=== PATIENT | male | born 2000 | race Caucasian/White ===

== ENCOUNTER 2021-06-28 16:25 | Inpatient (IN) | payer MEDICAID ==
[~2021-06-28] VITALS: Ht 188 cm; Wt 81.0 kg
[2021-06-28] MEDS ORDERED: NO HOME MEDS (23:50)
[2021-06-29] MEDS ORDERED: LIDOcaine 1% W/epiNEPHrine 1:200,000 10ml vial IJ ONE
[2021-06-29] MEDS ORDERED: LIDOcaine 1% W/epiNEPHrine 1:100,000 20ml vial IJ ONE (00:05)
[2021-06-29] MEDS ORDERED: morphine 2 MG/ML inj. syringe IV PRN ×2 (00:35→02:10)
[2021-06-29] MEDS: normal saline 1000ml 1,000 ML IV SCH ×3 (00:35→15:37)
[2021-06-29] MEDS ORDERED: ondansetron 4mg rapidly disintigrating tab PO PRN (00:35)
[2021-06-29] MEDS ORDERED: diphenhydrAMINE 25mg capsule PO PRN (00:35)
[2021-06-29] MEDS ORDERED: mag hydrox/Alum hydrox/simeth 30ml oral suspension PO PRN (00:35)
[2021-06-29] MEDS ORDERED: HYDROcodone/acetaminophen 10/325mg tab PO PRN (00:35)
[2021-06-29] MEDS ORDERED: acetaminophen 325mg tablet PO PRN ×2 (00:35)
[2021-06-29] MEDS ORDERED: HYDROmorphone inj. 0.5 MG/0.5 ML DISP.SYRIN IV PRN (00:35)
[2021-06-29] MEDS ORDERED: magnesium hydroxide 30ml (MOM) UD suspension PO PRN (00:35)
[2021-06-29] MEDS ORDERED: bisacodyl 10mg suppository rectal RC PRN (00:35)
[2021-06-29] MEDS ORDERED: diphenhydrAMINE 50 mg/ml inj IV PRN (00:35)
[2021-06-29] MEDS ORDERED: acetaminophen 650mg rectal suppository RC PRN (00:35)
--- NOTE | 2021-06-29 00:53 | NUR ---
MOTHER VIVIENNE [phone]
[2021-06-29] MEDS: ondansetron/PF 4mg/2ml inj IV PRN ×2 (03:04→11:27)
[2021-06-29] MEDS: morphine 2 MG/ML inj. syringe IV PRN ×2 (03:04→11:27)
[2021-06-29] MEDS: HYDROcodone/acetaminophen 5mg/325mg tablet PO PRN ×3 (05:22→19:57)
[2021-06-29 05:28] LABS: BASOPHILS # (AUTO) 0.1 X10'3 (0-0.2); BASOPHILS % (AUTO) 0.8 % (0-1); EOSINOPHILS % (AUTO) 0.7 % (0-6); HEMATOCRIT 43.9 % (42.0-52.0); HEMOGLOBIN 14.9 g/dl (14.0-17.9); LYMPHOCYTES # (AUTO) 1.3 X10'3 (1.1-4.8); LYMPHOCYTES % (AUTO) 20.1 % (21-51); MEAN CORPUSCULAR HEMOGLOBIN 30.4 PG (27.0-31.0); MEAN CORPUSCULAR VOLUME 89.3 FL (78-98); MEAN PLATELET VOLUME 8.2 FL (7.4-10.4); MONOCYTES # (AUTO) 0.4 X10'3 (0-0.9); MONOCYTES % (AUTO) 6.4 % (2-12); NEUTROPHILS # (AUTO) 4.5 X10'3 (1.8-7.7); PLATELET COUNT 228 X10'3 (140-440); RED BLOOD COUNT 4.92 X10'6 (4.70-6.10); RED CELL DISTRIBUTION WIDTH 13.7 % (11.5-14.5); WHITE BLOOD COUNT 6.3 X10'3 (4.5-11.0)
[2021-06-29 05:39] LABS: APTT 24 SECONDS (22-32)
[2021-06-29 05:40] LABS: D-DIMER < 0.19 MG/L FEU (0-0.50)
[2021-06-29 05:43] LABS: ALANINE AMINOTRANSFERASE 38 U/L (12-78); ALBUMIN 4.3 G/DL (3.4-5.0); ALBUMIN/GLOBULIN RATIO 1.3 (1.1-1.5); ALKALINE PHOSPHATASE 69 IU/L (46-116); ANION GAP 11 (8-16); ASPARTATE AMINO TRANSFERASE 26 U/L (10-37); BILIRUBIN,TOTAL 0.8 MG/DL (0.1-1.0); BLOOD UREA NITROGEN 12 MG/DL (7-18); BUN/CREATININE RATIO 10.7 (5.4-32.0); CALCIUM 9.1 MG/DL (8.5-10.1); CHLORIDE 105 MMOL/L (99-107); CREATININE 1.12 MG/DL (0.60-1.10); GLUCOSE 73 MG/DL (70-104); POTASSIUM 4.1 MMOL/L (3.5-5.1); SODIUM 141 MMOL/L (135-145); TOTAL CARBON DIOXIDE 25.4 MMOL/L (24-32); TOTAL PROTEIN 7.7 G/DL (6.4-8.2); eGFR 83 ML/MIN
[2021-06-29 05:51] LABS: HEMOGLOBIN A1C 4.9 % (4.5-6.2)
[2021-06-29 05:56] LABS: CREATINE KINASE 86 U/L (39-308); LIPASE 77 U/L (73-393); MAGNESIUM 1.8 MG/DL (1.5-2.4); PHOSPHORUS 3.7 MG/DL (2.3-4.5)
[2021-06-29] MEDS: docusate sod 100mg capsule PO SCH ×2 (08:00→19:57)
[2021-06-29] MEDS: pantoprazole 40MG/NS 100ML BAG 100 ML IV SCH (08:43)
[2021-06-29 15:40] VITALS: BP 135/78
[2021-06-29 18:00] VITALS: BP 135/80
--- NOTE | 2021-06-29 18:22 | NUR ---
Problems reprioritized. Patient report given to Sheela SANCHEZ, questions answered & plan of care reviewed with Sheela SANCHEZ.
--- NOTE | 2021-06-29 19:00 | NUR ---
mr bradford has been assessed as indicated.He has been noted to be both pleasant and cooperative. he does c/o discomfort at the Thoravent sight. He is provided PO pain medication. He uses the urinal independently. He has SOB. no other noted s/s of distress or discomfort
[2021-06-29] MEDS ORDERED: temazepam 15mg capsule PO PRN (21:00)
[2021-06-29 22:00] VITALS: BP 135/76
[2021-06-30 02:00] VITALS: BP 136/87
[2021-06-30] MEDS: HYDROcodone/acetaminophen 5mg/325mg tablet PO PRN ×4 (03:08→19:51)
[2021-06-30] MEDS: normal saline 1000ml 1,000 ML IV SCH ×2 (03:13→14:27)
[2021-06-30 06:00] VITALS: BP 130/70
--- NOTE | 2021-06-30 06:39 | NUR ---
Problems reprioritized. Patient report given, questions answered & plan of care reviewed with JEREMY SANCHEZ.
[2021-06-30 07:26] LABS: BASOPHILS % (AUTO) 0.8 % (0-1); EOSINOPHILS # (AUTO) 0.1 X10'3 (0-0.9); EOSINOPHILS % (AUTO) 2.4 % (0-6); HEMATOCRIT 41.7 % (42.0-52.0); HEMOGLOBIN 14.1 g/dl (14.0-17.9); LYMPHOCYTES # (AUTO) 1.7 X10'3 (1.1-4.8); LYMPHOCYTES % (AUTO) 33.3 % (21-51); MEAN CORPUSCULAR HEMOGLOBIN 30.2 PG (27.0-31.0); MEAN CORPUSCULAR HGB CONC 33.8 g/dL (33.0-36.5); MEAN CORPUSCULAR VOLUME 89.2 FL (78-98); MEAN PLATELET VOLUME 8.5 FL (7.4-10.4); MONOCYTES # (AUTO) 0.5 X10'3 (0-0.9); MONOCYTES % (AUTO) 9.7 % (2-12); NEUTROPHILS # (AUTO) 2.7 X10'3 (1.8-7.7); NEUTROPHILS % (AUTO) 53.8 % (42-75); PLATELET COUNT 202 X10'3 (140-440); RED BLOOD COUNT 4.68 X10'6 (4.70-6.10); RED CELL DISTRIBUTION WIDTH 13.1 % (11.5-14.5)
[2021-06-30 07:38] LABS: ALANINE AMINOTRANSFERASE 30 U/L (12-78); ALBUMIN 3.7 G/DL (3.4-5.0); ALBUMIN/GLOBULIN RATIO 1.3 (1.1-1.5); ALKALINE PHOSPHATASE 58 IU/L (46-116); ANION GAP 10 (8-16); ASPARTATE AMINO TRANSFERASE 19 U/L (10-37); BILIRUBIN,TOTAL 0.7 MG/DL (0.1-1.0); BLOOD UREA NITROGEN 10 MG/DL (7-18); BUN/CREATININE RATIO 10.3 (5.4-32.0); CALCIUM 8.6 MG/DL (8.5-10.1); CHLORIDE 103 MMOL/L (99-107); CHOL/HDL RATIO 2.9 (0.00-4.99); CHOLESTEROL 127 MG/DL (0-200); CREATININE 0.97 MG/DL (0.60-1.10); GLUCOSE 81 MG/DL (70-104); HDL CHOLESTEROL 44 MG/DL (35-60); LDL CHOLESTEROL 71 MG/DL (50-100); POTASSIUM 3.6 MMOL/L (3.5-5.1); SODIUM 140 MMOL/L (135-145); TOTAL PROTEIN 6.6 G/DL (6.4-8.2); TRIGLYCERIDES 44 MG/DL (20-135); eGFR > 90 ML/MIN
[2021-06-30] MEDS: pantoprazole 40MG/NS 100ML BAG 100 ML IV SCH (08:16)
[2021-06-30] MEDS: docusate sod 100mg capsule PO SCH ×2 (08:16→19:52)
[2021-06-30 11:00] VITALS: BP 129/79
--- NOTE | 2021-06-30 14:27 | NUR ---
IV Pt. requested to be removed from IV pole to move around and ambulate; Dr. Ferguson made aware and notified. [facility]
[2021-06-30 15:00] VITALS: BP 131/76
[2021-06-30 18:00] VITALS: BP 129/63
--- NOTE | 2021-06-30 18:15 | NUR ---
Problems reprioritized. Patient report given to Sheela SANCHEZ, questions answered & plan of care reviewed with Sheela SANCHEZ.
[2021-07-01] MEDS: normal saline 1000ml 1,000 ML IV SCH (02:35)
[2021-07-01] MEDS: HYDROcodone/acetaminophen 5mg/325mg tablet PO PRN (05:21)
--- NOTE | 2021-07-01 05:30 | NUR ---
Mr. bradford has been assessed as indicted. He has been noted to be both pleasant and cooperative. He has no s/s of distress or discomfort. He is compliant with the plan to have the Thoravent removed in Angio today. He has been successfully treated for pian 2x this shift. He is presently resting quietly and will continue to be monitored
[2021-07-01 06:00] VITALS: BP_SYST 126; BP_SYST 90; BP_DIAS 30; BP_DIAS 75
--- NOTE | 2021-07-01 06:00 | NUR ---
Patient in room PCU 3020. I have received report from DANIEL Coker and had the opportunity to ask questions and assume patient care.
[2021-07-01 06:50] LABS: BASOPHILS # (AUTO) 0.1 X10'3 (0-0.2); EOSINOPHILS # (AUTO) 0.2 X10'3 (0-0.9); EOSINOPHILS % (AUTO) 3.4 % (0-6); HEMATOCRIT 44.7 % (42.0-52.0); HEMOGLOBIN 15.4 g/dl (14.0-17.9); LYMPHOCYTES # (AUTO) 2.3 X10'3 (1.1-4.8); LYMPHOCYTES % (AUTO) 40.2 % (21-51); MEAN CORPUSCULAR HEMOGLOBIN 30.6 PG (27.0-31.0); MEAN CORPUSCULAR HGB CONC 34.5 g/dL (33.0-36.5); MEAN CORPUSCULAR VOLUME 88.6 FL (78-98); MEAN PLATELET VOLUME 8.4 FL (7.4-10.4); MONOCYTES # (AUTO) 0.6 X10'3 (0-0.9); MONOCYTES % (AUTO) 9.8 % (2-12); NEUTROPHILS # (AUTO) 2.6 X10'3 (1.8-7.7); NEUTROPHILS % (AUTO) 45.6 % (42-75); PLATELET COUNT 238 X10'3 (140-440); RED BLOOD COUNT 5.04 X10'6 (4.70-6.10); RED CELL DISTRIBUTION WIDTH 13.2 % (11.5-14.5); WHITE BLOOD COUNT 5.6 X10'3 (4.5-11.0)
--- NOTE | 2021-07-01 07:02 | NUR ---
Problems reprioritized. Patient report given, questions answered & plan of care reviewed with Jann torres
[2021-07-01 07:06] LABS: ALANINE AMINOTRANSFERASE 24 U/L (12-78); ALBUMIN 4.3 G/DL (3.4-5.0); ALBUMIN/GLOBULIN RATIO 1.2 (1.1-1.5); ALKALINE PHOSPHATASE 64 IU/L (46-116); ANION GAP 11 (8-16); ASPARTATE AMINO TRANSFERASE 18 U/L (10-37); BILIRUBIN,TOTAL 0.7 MG/DL (0.1-1.0); BLOOD UREA NITROGEN 9 MG/DL (7-18); BUN/CREATININE RATIO 8.6 (5.4-32.0); CALCIUM 9.6 MG/DL (8.5-10.1); CHLORIDE 102 MMOL/L (99-107); CREATININE 1.05 MG/DL (0.60-1.10); GLUCOSE 89 MG/DL (70-104); POTASSIUM 3.7 MMOL/L (3.5-5.1); SODIUM 140 MMOL/L (135-145); TOTAL CARBON DIOXIDE 26.6 MMOL/L (24-32); TOTAL PROTEIN 7.9 G/DL (6.4-8.2); eGFR 89 ML/MIN
[2021-07-01] MEDS: pantoprazole 40MG/NS 100ML BAG 100 ML IV SCH (08:20)
[2021-07-01] MEDS: docusate sod 100mg capsule PO SCH (08:20)
[2021-07-01 11:00] VITALS: BP 158/93
--- NOTE | 2021-07-01 11:00 | NUR ---
Thoravent was removed for CHIP Lora. Patient keep in observation.
--- NOTE | 2021-07-01 12:23 | NUR ---
Patient no report SOB, lungs sounds is clear.
--- NOTE | 2021-07-01 14:00 | NUR ---
Patient discharge alert and orient. Educated the patient for the instructions to follow.
== END 2021-07-01 14:18 | disposition home or self-care (01) | DRG 143 ==
LOC: ER 16:26 → ED HOLD 06-29 00:38 → EDBEDREQ 06-29 00:49 → PCU 3S 06-29 15:26
PROVIDERS: ADMIT Family Medicine; ATTEND Family Medicine
PROC: 0W9B00Z Drainage of Left Pleural Cavity with Drainage Device, Open Approach (ICD-10-PCS; principal; 2021-06-28)
DX: J93.83 Other pneumothorax (principal); J96.01 Acute respiratory failure with hypoxia; M25.512 Pain in left shoulder; Z72.0 Tobacco use; Z71.6 Tobacco abuse counseling
CPT/HCPCS: 36415; 71045; 80053; 80061; 82550; 83036; 83690; 83735; 83880; 84100; 84443; 84484; 85025; 85379; 85610; 85730; 99285; C9113; G0378; J2270; J2405; J7030

== ENCOUNTER 2022-07-31 08:06 | Emergency (ER) | payer MEDICAID ==
[~2022-07-31] VITALS: Ht 188 cm; Wt 100.0 kg
[~2022-07-31 08:06] MED LIST: NO HOME MEDS
[2022-07-31 08:11] VITALS: BP 178/100
== END 2022-07-31 09:01 | disposition home or self-care (01) ==
LOC: ER 08:06
DX: S29.012A Strain of muscle and tendon of back wall of thorax, initial encounter (principal); F17.200 Nicotine dependence, unspecified, uncomplicated; Z87.81 Personal history of (healed) traumatic fracture; X58.XXXA Exposure to other specified factors, initial encounter; Y93.89 Activity, other specified; Y92.89 Other specified places as the place of occurrence of the external cause; Y99.8 Other external cause status
CPT/HCPCS: 71046; 99283

== ENCOUNTER 2022-12-06 16:26 | Emergency (ER) | payer MEDICAID ==
[~2022-12-06] VITALS: Ht 190.5 cm; Wt 100.0 kg
[2022-12-06 16:45] LABS: EOSINOPHILS # (AUTO) 0.1 X10'3 (0-0.9); EOSINOPHILS % (AUTO) 2.6 % (0-6); HEMATOCRIT 44.5 % (42.0-52.0); HEMOGLOBIN 14.9 g/dl (14.0-17.9); LYMPHOCYTES # (AUTO) 1.8 X10'3 (1.1-4.8); LYMPHOCYTES % (AUTO) 38.2 % (21-51); MEAN CORPUSCULAR HEMOGLOBIN 29.5 PG (27.0-31.0); MEAN CORPUSCULAR HGB CONC 33.4 g/dL (33.0-36.5); MEAN CORPUSCULAR VOLUME 88.2 FL (78-98); MEAN PLATELET VOLUME 7.9 FL (7.4-10.4); MONOCYTES # (AUTO) 0.3 X10'3 (0-0.9); MONOCYTES % (AUTO) 6.9 % (2-12); NEUTROPHILS # (AUTO) 2.4 X10'3 (1.8-7.7); NEUTROPHILS % (AUTO) 51.3 % (42-75); PLATELET COUNT 250 X10'3 (140-440); RED BLOOD COUNT 5.05 X10'6 (4.70-6.10); RED CELL DISTRIBUTION WIDTH 14.4 % (11.5-14.5); WHITE BLOOD COUNT 4.6 X10'3 (4.5-11.0)
[2022-12-06 16:54] LABS: ALANINE AMINOTRANSFERASE 39 U/L (12-78); ALBUMIN 4.1 G/DL (3.4-5.0); ALBUMIN/GLOBULIN RATIO 1.2 (1.1-1.5); ALKALINE PHOSPHATASE 62 IU/L (46-116); ANION GAP 13 (8-16); ASPARTATE AMINO TRANSFERASE 18 U/L (10-37); BILIRUBIN,TOTAL 0.3 MG/DL (0.1-1.0); BLOOD UREA NITROGEN 9 MG/DL (7-18); BUN/CREATININE RATIO 9.4 (10.0-20.0); CALCIUM 9.2 MG/DL (8.5-10.1); CHLORIDE 105 MMOL/L (99-107); CREATININE 0.96 MG/DL (0.60-1.10); GLUCOSE 84 MG/DL (70-104); SODIUM 144 MMOL/L (135-145); TOTAL CARBON DIOXIDE 26.4 MMOL/L (24-32); TOTAL PROTEIN 7.4 G/DL (6.4-8.2); eGFR > 90 ML/MIN
[2022-12-06 19:26] VITALS: BP 122/75
== END 2022-12-06 19:28 | disposition home or self-care (01) ==
LOC: ER 16:27
DX: R07.9 Chest pain, unspecified (principal); Z87.81 Personal history of (healed) traumatic fracture
CPT/HCPCS: 36415; 71045; 80053; 83880; 84484; 85025; 93005; 99285

== ENCOUNTER 2022-12-09 16:06 | Emergency (ER) | payer MEDICAID | END 2022-12-09 19:35 | disposition left against medical advice (07) | LOC: ER 16:07 | DX: Z02.79 Encounter for issue of other medical certificate (principal); Z53.21 Procedure and treatment not carried out due to patient leaving prior to being seen by health care provider ==